=== PATIENT | female | born 1950 | race African-American/Black ===

== ENCOUNTER 2019-08-21 15:18 | Emergency (ER) | payer MEDICARE, OTHER ==
[~2019-08-21] VITALS: Ht 154.9 cm; Wt 76.0 kg
[2019-08-21] MEDS ORDERED: IBUPROFEN 600MG TABLET PO ONE (16:15)
[2019-08-21] MEDS ORDERED: ACETAMINOPHEN 325MG TABLET PO ONE (16:15)
[2019-08-21 17:30] VITALS: BP 137/78
== END 2019-08-21 17:32 | disposition home or self-care (01) ==
LOC: ER 15:18 → EDBD 15:18 → EDSEX 15:18 → ER 17:32
DX: S20.212A Contusion of left front wall of thorax, initial encounter (principal); M25.552 Pain in left hip; I10 Essential (primary) hypertension; Z98.890 Other specified postprocedural states; Z96.649 Presence of unspecified artificial hip joint; V43.62XA Car passenger injured in collision with other type car in traffic accident, initial encounter; Y93.89 Activity, other specified; Y92.89 Other specified places as the place of occurrence of the external cause; Y99.8 Other external cause status
CPT/HCPCS: 71045; 71100; 73502; 93005; 99284

== ENCOUNTER 2019-09-01 11:46 | Emergency (ER) | payer MEDICARE, OTHER ==
[~2019-09-01] VITALS: Ht 154.9 cm; Wt 66.0 kg
[2019-09-01] MEDS ORDERED: KETOROLAC 30MG/ML VIAL IM ONE (14:30)
[2019-09-01] MEDS ORDERED: ACYCLOVIR 400 MG TABLET PO ONE (14:30)
[2019-09-01 14:50] VITALS: BP 153/89
== END 2019-09-01 15:19 | disposition home or self-care (01) ==
LOC: ER 11:46
DX: B02.9 Zoster without complications (principal); I10 Essential (primary) hypertension; Z98.890 Other specified postprocedural states
CPT/HCPCS: 96372; 99283; J1885